=== PATIENT | female | born 1985 | race Caucasian/White ===

== ENCOUNTER 2019-02-08 09:52 | Emergency (ER) | payer OTHER ==
[~2019-02-08] VITALS: Ht 162.6 cm; Wt 75.8 kg
[2019-02-08 10:17] LABS: URINE BLOOD NEGATIVE (Negative); URINE CLARITY CLEAR; URINE COLOR YELLOW; URINE GLUCOSE-RANDOM* TRACE (Negative); URINE KETONES NEGATIVE (Negative); URINE LEUKOCYTES-REFLEX TRACE (Negative); URINE PROTEIN (DIPSTICK) 1+ (Negative); URINE SPECIFIC GRAVITY 1.025 (1.005-1.035)
[2019-02-08 10:20] LABS: URINE NITRITE-REFLEX POSITIVE (Negative)
[2019-02-08 10:24] LABS: ICTOTEST (BILI CONFIRMATORY) Negative (Negative); URINE BILIRUBIN NEGATIVE (Negative)
[2019-02-08 10:38] LABS: CASTS None Seen /LPF (None Seen); CRYSTALS None Seen /LPF (None Seen); SQUAMOUS 4-10 Moderate /LPF (0-3); URINE RBC 0-2 Rare /HPF (0-2)
[2019-02-08 10:39] LABS: URINE WBC-REFLEX 0-5 Rare /HPF (0-5)
[2019-02-08 10:51] LABS: HEMATOCRIT 39.4 % (37.0-47.0); HEMOGLOBIN 13.7 gm/dL (12.0-15.0); MCH 34.5 pg (26.0-34.0); MCHC 34.8 g/dL (28.0-37.0); MCV 99.2 fL (80.0-100.0); PLATELET COUNT 137 thou/uL (150-400); RBC 3.97 mil/uL (4.20-5.00); RDW 14.4 % (10.5-14.5); WBC 9.2 thou/uL (4.0-11.0)
[2019-02-08 11:01] LABS: CALCIUM 9.3 mg/dL (8.5-10.1); CREATININE 0.6 mg/dL (0.6-1.0); POTASSIUM 3.9 mmol/L (3.5-5.1)
[2019-02-08 11:07] LABS: ALBUMIN 3.3 g/dL (3.4-5.0); TOTAL BILIRUBIN 10.5 mg/dL (<0.1-1.0); TOTAL PROTEIN 7.7 g/dL (6.4-8.2)
[2019-02-08 11:10] LABS: INR 1.3; PLATELET ESTIMATE NORMAL; PROTIME 13.3 Seconds (9.3-11.4)
[2019-02-08 12:47] VITALS: BP 120/77
== END 2019-02-08 12:49 | disposition home or self-care (01) ==
LOC: ER 09:52
PROVIDERS: Emergency Medicine
DX: K76.0 Fatty (change of) liver, not elsewhere classified (principal); F17.200 Nicotine dependence, unspecified, uncomplicated